=== PATIENT | female | born 1970 ===

== ENCOUNTER 2017-12-29 10:10 | Inpatient (IN) | payer BC ==
[2017-12-29] MEDS ORDERED: Sodium Chloride 0.9% 1,500 ML IV STA (10:54)
[2017-12-29 11:04] LABS: HCG,QUALITATIVE URINE NEGATIVE (NEGATIVE)
[2017-12-29 11:18] LABS: SQUAMOUS EPITHIAL 1 /hpf (0-5); URINE BILIRUBIN NEGATIVE (NEGATIVE); URINE BLOOD NEGATIVE (NEGATIVE); URINE CLARITY Hazy (Clear); URINE COLOR Amber (YELLOW); URINE GLUCOSE (UA) NORMAL (Normal); URINE PROTEIN 1+ mg/dL (NEGATIVE); URINE UROBILINOGEN NORMAL mg/dL (0.2-1.0)
[2017-12-29 11:19] LABS: URINE LEUKOCYTE ESTERASE 1+ Leu/uL (Negative)
[2017-12-29] MEDS ORDERED: Piperacill/Tazo 4.5gm in Dex 4.5 GM/100 ML BAG IVPB STA (11:19)
--- NOTE | 2017-12-29 11:26 | C.PDOC ---
History Of Present Illness 47 year old female with no past medical history presents to the emergency department with fever x 5 days. Reports body aches, general weakness, nausea, non-bloody, non-bilious vomiting x 3. Denies cough, dysuria, and diarrhea. Time Seen by Provider: 12/29/17 10:35 Chief Complaint (Nursing): Fever History Per: Patient History/Exam Limitations: no limitations Onset/Duration Of Symptoms: Days (5) Location Of Pain: Diffuse Myalgias Associated Symptoms: Nausea, Vomiting. denies: Cough, Diarrhea, Other (dysuria) Past Medical History Reviewed: Historical Data, Nursing Documentation, Vital Signs Vital Signs: Last Vital Signs Temp 98.5 F 12/29/17 12:22 Pulse 81 12/29/17 14:55 Resp 16 12/29/17 14:55 BP 108/56 L 12/29/17 14:55 Pulse Ox 93 L 12/29/17 14:57 - Medical History PMH: No Chronic Diseases Surgical History: No Surg Hx Family History: States: No Known Family Hx - Social History Hx Alcohol Use: No Hx Substance Use: No - Immunization History Hx Influenza Vaccination: No Hx Pneumococcal Vaccination: No Review Of Systems Except As Marked, All Systems Reviewed And Found Negative. Constitutional: Positive for: Weakness, Other (body aches) Respiratory: Negative for: Cough Gastrointestinal: Positive for: Nausea, Vomiting. Negative for: Diarrhea Genitourinary: Negative for: Dysuria Physical Exam - Physical Exam Additional Physical Exam Comments: Constitutional: No acute distress. Head: Normocephalic. Atraumatic. Eyes: PERRL. ENT: Moist mucous membranes. Neck: Supple. Cardiovascular: Tachycardic. Radial pulse 2+ bilaterally. Chest: No tenderness. Respiratory: Right basilar crackle. GI: Soft. Right upper quadrant tenderness. Guarding. "Patient did not realize abdominal pain until examination." Back: No CVA tenderness. Musculoskeletal: No tenderness or swelling of extremities. Skin: No rash. Neurologic: Alert, no focal deficit. ED Course And Treatment - Laboratory Results Result Diagrams: 12/29/17 11:33 12/29/17 11:33 O2 Sat by Pulse Oximetry: 93 (RA) Pulse Ox Interpretation: Abnormal - Other Rad Chest X-Ray X-Ray: Read By Radiologist Interpretation: FINDINGS: LUNGS: Patchy right lower long opacities. PLEURA: No significant pleural effusion identified, no pneumothorax apparent. CARDIOVASCULAR: Atherosclerotic aortic calcifications. Cardiomediastinal silhouette within normal limits. OSSEOUS STRUCTURES: No significant abnormalities. VISUALIZED UPPER ABDOMEN: Normal. OTHER FINDINGS: None. IMPRESSION: Patchy right lower lung opacities. - CT Scan/US US Abdomen Other Rad Studies (CT/US): Read By Radiologist, Radiology Report Reviewed CT/US Interpretation: FINDINGS: LIVER: Measures 14.4 cm. Normal echogenicity of the liver parenchyma. Tiny echogenic focus measuring up to 0.6 cm. No intrahepatic bile duct dilatation. GALLBLADDER: Unremarkable. No gallstones. COMMON BILE DUCT: Measures 4 mm. No stones. No dilatation. PANCREAS: Unremarkable as visualized. No mass. No ductal dilatation. RIGHT KIDNEY: Measures 10.6 x 4.2 x 4.5cm. Normal echogenicity. No calculus, mass, or hydronephrosis. LEFT KIDNEY: Measures 10.7 x 5.5 x 5.1cm. Normal echogenicity. No calculus, mass, or hydronephrosis. SPLEEN: Normal in size and contour. No mass. AORTA: No aneurysmal dilatation. IVC: Unremarkable. OTHER FINDINGS: None. IMPRESSION: Tiny echogenic focus in the right hepatic lobe measuring 6 mm, too small to characterize, but may represent a hemangioma. Medical Decision Making Medical Decision Making: Plan: VBG EKG CMP Magnesium Phosphorus CBC PTT Prothrombin Time CXR Zosyn 4.5gm/100ml NaCl IV Fluids Blood Culture Urine Culture Influenza A B Urine Urinalysis Dr. William accepts patient to medical service. Disposition Discussed With : Anny William Doctor Will See Patient In The: ED - Disposition Disposition: HOSPITALIZED Disposition Time: 15:00 Condition: FAIR Forms: [employer] ([place] Islander) - POA Core Measure Indicators: Pneumonia - Clinical Impression Clinical Impression: Pneumonia - Scribe Statement The provider has reviewed the documentation as recorded by the Scribe (Bhargav Acosta) Provider Attestation: All medical record entries made by the Scribe were at my direction and personally dictated by me. I have reviewed the chart and agree that the record accurately reflects my personal performance of the history, physical exam, medical decision making, and the department course for this patient. I have also personally directed, reviewed, and agree with the discharge instructions and disposition.
[2017-12-29 11:39] LABS: BASO % 0.1 % (0.0-2.0); EOS # 0.1 K/uL (0.0-0.7); EOS % 1.2 % (0.0-4.0); HEMOGLOBIN 11.7 g/dL (11.0-16.0); LYMPH # 0.5 K/uL (1.0-4.3); LYMPH % 4.2 % (20.0-40.0); MEAN CELL VOLUME 97.2 fL (81.0-99.0); MEAN CORPUSCULAR HEMOGLOBIN 32.9 pg (27.0-31.0); MEAN CORPUSCULAR HGB CONC 33.8 g/dL (33.0-37.0); MEAN PLATELET VOLUME 7.7 fL (7.2-11.7); MONO # 0.3 K/uL (0.0-0.8); MONO % 2.2 % (0.0-10.0); NEUT # 11.1 K/uL (1.8-7.0); NEUT % 92.3 % (50.0-75.0); PLATELET COUNT 226 K/uL (130-400); RBC 3.56 Mil/uL (3.80-5.20); RED CELL DISTRIBUTION WIDTH 13.2 % (11.5-14.5)
[2017-12-29 11:45] LABS: VENOUS BLOOD GAS BASE EXCESS -1.9 mmol/L (0.0-2.0); VENOUS BLOOD GAS PCO2 35 mmHg (40-60); VENOUS BLOOD GAS PO2 49 mm/Hg (30-55); VENOUS BLOOD PH 7.41 (7.32-7.43)
[2017-12-29 11:49] LABS: ALB/GLOB RATIO 1.1 (1.0-2.1); ALBUMIN 3.4 g/dL (3.5-5.0); ALT/SGPT 30 U/L (9-52); AST/SGOT 25 U/L (14-36); BLOOD UREA NITROGEN 16 mg/dL (7-17); CALCIUM 9.2 mg/dl (8.6-10.4); GFR NON-AFRICAN AMERICAN > 60
[2017-12-29 11:51] LABS: INR 1.6
--- NOTE | 2017-12-29 12:14 | RAD ---
Date of service: 12/29/2017 HISTORY: fever COMPARISON: No prior. FINDINGS: LUNGS: Patchy right lower long opacities. PLEURA: No significant pleural effusion identified, no pneumothorax apparent. CARDIOVASCULAR: Atherosclerotic aortic calcifications. Cardiomediastinal silhouette within normal limits. OSSEOUS STRUCTURES: No significant abnormalities. VISUALIZED UPPER ABDOMEN: Normal. OTHER FINDINGS: None. IMPRESSION: Patchy right lower lung opacities.
[2017-12-29 12:36] LABS: BANDS 19 % (0-2); EOSINOPHIL 1 % (0-4); LYMPHOCYTE 3 % (20-40); NEUTROPHIL 77 % (50-75); TOTAL CELLS COUNTED 100
[2017-12-29 12:37] LABS: LARGE PLATELETS PRESENT; PLATELET ESTIMATE NORMAL (NORMAL)
--- NOTE | 2017-12-29 14:53 | US ---
Date of service: 12/29/2017 HISTORY: RUQ pain COMPARISON: None. TECHNIQUE: Sonographic evaluation of the abdomen. FINDINGS: LIVER: Measures 14.4 cm. Normal echogenicity of the liver parenchyma. Tiny echogenic focus measuring up to 0.6 cm. No intrahepatic bile duct dilatation. GALLBLADDER: Unremarkable. No gallstones. COMMON BILE DUCT: Measures 4 mm. No stones. No dilatation. PANCREAS: Unremarkable as visualized. No mass. No ductal dilatation. RIGHT KIDNEY: Measures 10.6 x 4.2 x 4.5cm. Normal echogenicity. No calculus, mass, or hydronephrosis. LEFT KIDNEY: Measures 10.7 x 5.5 x 5.1cm. Normal echogenicity. No calculus, mass, or hydronephrosis. SPLEEN: Normal in size and contour. No mass. AORTA: No aneurysmal dilatation. IVC: Unremarkable. OTHER FINDINGS: None. IMPRESSION: Tiny echogenic focus in the right hepatic lobe measuring 6 mm, too small to characterize, but may represent a hemangioma.
[2017-12-29] MEDS ORDERED: Azithromycin 500 MG in Sodium Chloride 0.9% 250 ML IVPB STA (14:59)
[2017-12-29] MEDS ORDERED: Azithromycin 500mg/250ML NS 500 MG/250 ML BAG IVPB ONE (15:10)
--- NOTE | 2017-12-29 15:16 | CP.PCM.HP ---
<Omi López - Last Filed: 12/29/17 17:58> History of Present Illness - History of Present Illness History of Present Illness: Medicine H&P CC: fever and cough for the past 5 days HPI: This 47 year old female with PMHx of insomnia and seasonal allergies- presents c/o cough productive of white sputum and fever for the past 5 days. She states that she suffers from seasonal allergies and has been experiencing post nasal drip. She measured a Tmax of 100.3 despite taking Tylenol 1 tab TID for the past 3 days. She saw her PMD Dr. Gabriel in [facility] 2 days ago who diagnosed her with seasonal allergies and prescribed Cromolyn sodium spray, with minimal relief. She also states that she feels moderate pleuritic chest pain when she coughs. She denies overt chest pain, SOB, headaches, dizziness, LE swelling, overt abdominal pain, dysuria, or LE edema. She did vomit once this morning, which she attributes to difficulty expectorating and possibly swallowed some sputum. She denies any additional acute complaints. PMHx: insomnia PSHx: Lasix eye surgery b/l 2004 Meds: ambien 10mg PO HS, Latanoprost 0.005% eye drop b/l Allergies: NKDA, seasonal allergies FamHx: Dad 84yo, Mom 80yo - alive/well; denies FamHx. SocHx: denies tobacco, ETOH, or illicit drug use PMD: Dr. Gabriel in [facility] Review of Systems: -Gen: + fever, No chills, No headache, + lethargy, No weakness. -HEENT: No dizziness, No change in vision, No change in hearing, No sore throat , No dysphagia, + nasal congestion, No mucous. -Cardio: No chest pain, No palpitations, No lower extremity edema, No orthopnea. -Resp: +cough, No dyspnea, No hemoptysis, No wheezing, + pain on inspiration. -GI: No abdominal pain, +nausea/vomiting, No diarrhea/constipation, No hematochezia, No hematemesis. -: No dysuria, No urinary freq, No incontinence, No hematuria, No change in urinary stream. -MSK: No back pain, No muscle weakness, No radiating pain. -Skin: No itching, No rash, No lesions. -Neuro: No confusion, No numbness, No tingling, No focal weakness, No radicular pain, No syncope. -Psych: No anxiety, No depression, No H/I, No S/I, No hallucinations. Present on Admission - Present on Admission Any Indicators Present on Admission: No History of DVT/PE: No History of Uncontrolled Diabetes: No Past Patient History - Past Social History Smoking Status: Never Smoked - CARDIAC Hx Cardiac Disorders: No - PULMONARY Hx Respiratory Disorders: No - HEENT Hx Sinusitis: Yes - PSYCHIATRIC Hx Substance Use: No Meds Allergies/Adverse Reactions: Allergies Allergy/AdvReac Type Severity Reaction Status Date / Time No Known Allergies Allergy Verified 12/29/17 10:19 Physical Exam - Additional Findings Additional findings: - Constitutional Appears: Non-toxic, No Acute Distress - Head Exam Head Exam: ATRAUMATIC, NORMAL INSPECTION - Eye Exam Eye Exam: EOMI, Normal appearance - ENT Exam ENT Exam: Mucous Membranes Dry -b/l tonsilar exudates, mild; no cervical lymphadenopathy, non-TTP - Neck Exam Neck Exam: absent: Tenderness, Lymphadenopathy - Respiratory Exam Respiratory Exam: NORMAL BREATHING PATTERN, Crackles (R lower lobe). absent: Rales, Wheezes - Cardiovascular Exam Cardiovascular Exam: Regular Rate, +S1, +S2 - GI/Abdominal Exam GI & Abdominal Exam: Soft, Normal Bowel Sounds, Tenderness (mild, diffuse abdominal TTP - muscular). note: no suprapubic tenderness - Extremities Exam Extremities Exam: Full ROM, Normal Inspection. absent: Pedal Edema, Tenderness - Back Exam Back Exam: NORMAL INSPECTION. absent: CVA tenderness (L), CVA tenderness (R) - Neurological Exam Neurological Exam: Alert, Awake, Oriented x3 - Psychiatric Exam Psychiatric exam: Normal Affect, Normal Mood - Skin Skin Exam: Dry, Intact, Normal Color, Warm Results - Vital Signs Recent Vital Signs: Last Vital Signs Temp 98.5 F 12/29/17 12:22 Pulse 81 12/29/17 14:55 Resp 16 12/29/17 14:55 BP 108/56 L 12/29/17 14:55 Pulse Ox 93 L 12/29/17 15:00 - Labs Result Diagrams: 12/29/17 11:33 12/29/17 11:33 Labs: Laboratory Results - last 24 hr 12/29/17 12/29/17 12/29/17 10:53 11:33 11:33 WBC 12.0 H RBC 3.56 L Hgb 11.7 Hct 34.6 MCV 97.2 MCH 32.9 H MCHC 33.8 RDW 13.2 Plt Count 226 MPV 7.7 Neut % (Auto) 92.3 H Lymph % (Auto) 4.2 L [place] % (Auto) 2.2 Eos % (Auto) 1.2 Baso % (Auto) 0.1 Neut # (Auto) 11.1 H Lymph # (Auto) 0.5 L [place] # (Auto) 0.3 Eos # (Auto) 0.1 Baso # (Auto) 0.0 Neutrophils % (Manual) 77 H Band Neutrophils % 19 H* Lymphocytes % (Manual) 3 L Monocytes % (Manual) TEST NOT PERFORMED Eosinophils % (Manual) 1 Platelet Estimate Normal Large Platelets Present RBC Morphology Normal PT INR APTT pO2 VBG pH VBG pCO2 VBG HCO3 VBG Total CO2 VBG O2 Sat (Calc) VBG Base Excess VBG Potassium Glucose Lactate Sodium Potassium Chloride Carbon Dioxide Anion Gap BUN Creatinine Est GFR ( Amer) Est GFR (Non-Af Amer) Random Glucose Calcium Phosphorus Magnesium Total Bilirubin AST ALT Alkaline Phosphatase Total Protein Albumin Globulin Albumin/Globulin Ratio Venous Blood Potassium Urine Color Мария Urine Clarity Hazy Urine pH 5.0 Ur Specific [place] 1.024 Urine Protein 1+ H Urine Glucose (UA) Normal Urine Ketones 1+ H Urine Blood Negative Urine Nitrate Negative Urine Bilirubin Negative Urine Urobilinogen Normal Ur Leukocyte Esterase 1+ H Urine WBC (Auto) 17 H Urine RBC (Auto) 3 Ur Squamous Epith Cells 1 Urine HCG, Qual Negative Influenza Typ A,B (EIA) Negative for flu a/b 12/29/17 12/29/17 12/29/17 11:33 11:33 11:42 WBC RBC Hgb Hct MCV MCH MCHC RDW Plt Count MPV Neut % (Auto) Lymph % (Auto) [place] % (Auto) Eos % (Auto) Baso % (Auto) Neut # (Auto) Lymph # (Auto) [place] # (Auto) Eos # (Auto) Baso # (Auto) Neutrophils % (Manual) Band Neutrophils % Lymphocytes % (Manual) Monocytes % (Manual) Eosinophils % (Manual) Platelet Estimate Large Platelets RBC Morphology PT 17.0 H INR 1.6 APTT 31 pO2 49 VBG pH 7.41 VBG pCO2 35 L VBG HCO3 23.1 VBG Total CO2 23.3 VBG O2 Sat (Calc) 87.7 H VBG Base Excess -1.9 L VBG Potassium 3.5 L Glucose 84 Lactate 0.9 Sodium 136 135.0 Potassium 3.9 Chloride 101 103.0 Carbon Dioxide 24 Anion Gap 16 BUN 16 Creatinine 0.4 L Est GFR ( Amer) > 60 Est GFR (Non-Af Amer) > 60 Random Glucose 91 Calcium 9.2 Phosphorus 4.4 Magnesium 1.9 Total Bilirubin 0.5 AST 25 ALT 30 Alkaline Phosphatase 102 Total Protein 6.5 Albumin 3.4 L Globulin 3.1 Albumin/Globulin Ratio 1.1 Venous Blood Potassium 3.5 L Urine Color Urine Clarity Urine pH Ur Specific [place] Urine Protein Urine Glucose (UA) Urine Ketones Urine Blood Urine Nitrate Urine Bilirubin Urine Urobilinogen Ur Leukocyte Esterase Urine WBC (Auto) Urine RBC (Auto) Ur Squamous Epith Cells Urine HCG, Qual Influenza Typ A,B (EIA) Assessment & Plan - Assessment and Plan (Free Text) Assessment: Pneumonia r/o sepsis +SIRS: hypotension, WBC 12k with 19 bands CXR- Patchy right lower lung opacities. see full report. ED Course: Zosyn 4.5gm IVPB, Azithromycin 500mg IVPB, Toradol 30mg IVP, NS0.9 1500cc bolus. Influenza A B - negative Urine negative VBG lactate 0.9, f/u repeat ABG NS 0.9 at 100cc/hr Azithro 500mg IVPB qD Rocephin 1Gm IVPB q12H Florastor Tylenol 650mg PO Q6H PRN fever Duonebs q6H TIEN Mucinex Q12H TIEN CURB65 score of 1pt, indicating low risk of mortality for CAP calculate PORT/PSI score based on ABG when it results. f/u repeat lactate f/u CXR in am f/u ABG f/u Blood Culture f/u Urine Culture f/u throat culture / rapid strep f/u legionella, strep pneumo urine, m. pneumo Igm, Pleuritic Chest Pain Motrin 400mg PO Q6H PRN pain Mucinex Q12H TIEN Nausea/Vomit US abdomen- Tiny echogenic focus in the right hepatic lobe measuring 6 mm, too small to characterize, but may represent a hemangioma. see full report Zofran 4mg IVP qD PRN NS 0.9 at 100cc/hr Urinary Tract Infection asymptomatic on physical exam, denies dysuria UA: +1 ketone, +1 protein, +1 leuk est., WBC 17 Rocephin 1gm IV q12 for pneumonia will cover f/u urine culture Hypotension BP on admission 92/59-> improved to 108/56 with IVF Patient responded to 1.5L NS0.9 bolus Continue NS0.9 at 100cc/hr Insomnia continue ambien 5mg PO HS Prophylaxis -pepcid 20mg PO BID -SCDs -lovenox 40mg SC daily -heart healthy diet, soft Case discussed with Dr. William - Date & Time Date: 12/29/17 Time: 15:20 <Anny William V - Last Filed: 12/29/17 21:11> Results - Vital Signs Recent Vital Signs: Last Vital Signs Temp 98.2 F 12/29/17 20:57 Pulse 80 12/29/17 20:57 Resp 16 12/29/17 20:57 BP 121/65 12/29/17 20:57 Pulse Ox 95 12/29/17 20:57 - Labs Result Diagrams: 12/29/17 11:33 12/29/17 11:33 Labs: Laboratory Results - last 24 hr 12/29/17 12/29/17 12/29/17 10:53 11:33 11:33 WBC 12.0 H RBC 3.56 L Hgb 11.7 Hct 34.6 MCV 97.2 MCH 32.9 H MCHC 33.8 RDW 13.2 Plt Count 226 MPV 7.7 Neut % (Auto) 92.3 H Lymph % (Auto) 4.2 L [place] % (Auto) 2.2 Eos % (Auto) 1.2 Baso % (Auto) 0.1 Neut # (Auto) 11.1 H Lymph # (Auto) 0.5 L [place] # (Auto) 0.3 Eos # (Auto) 0.1 Baso # (Auto) 0.0 Neutrophils % (Manual) 77 H Band Neutrophils % 19 H* Lymphocytes % (Manual) 3 L Monocytes % (Manual) TEST NOT PERFORMED Eosinophils % (Manual) 1 Platelet Estimate Normal Large Platelets Present RBC Morphology Normal PT INR APTT Puncture Site pCO2 pO2 HCO3 ABG pH ABG Total CO2 ABG O2 Saturation ABG Base Excess [place] Test ABG Potassium VBG pH VBG pCO2 VBG HCO3 VBG Total CO2 VBG O2 Sat (Calc) VBG Base Excess VBG Potassium Glucose Lactate Sodium Potassium Chloride Carbon Dioxide Anion Gap BUN Creatinine Est GFR ( Amer) Est GFR (Non-Af Amer) Random Glucose Calcium Phosphorus Magnesium Total Bilirubin AST ALT Alkaline Phosphatase Total Protein Albumin Globulin Albumin/Globulin Ratio Arterial Blood Potassium Venous Blood Potassium Urine Color Мария Urine Clarity Hazy Urine pH 5.0 Ur Specific [place] 1.024 Urine Protein 1+ H Urine Glucose (UA) Normal Urine Ketones 1+ H Urine Blood Negative Urine Nitrate Negative Urine Bilirubin Negative Urine Urobilinogen Normal Ur Leukocyte Esterase 1+ H Urine WBC (Auto) 17 H Urine RBC (Auto) 3 Ur Squamous Epith Cells 1 Urine HCG, Qual Negative Influenza Typ A,B (EIA) Negative for flu a/b Grp A Beta Strep Ag 12/29/17 12/29/17 12/29/17 11:33 11:33 11:42 WBC RBC Hgb Hct MCV MCH MCHC RDW Plt Count MPV Neut % (Auto) Lymph % (Auto) [place] % (Auto) Eos % (Auto) Baso % (Auto) Neut # (Auto) Lymph # (Auto) [place] # (Auto) Eos # (Auto) Baso # (Auto) Neutrophils % (Manual) Band Neutrophils % Lymphocytes % (Manual) Monocytes % (Manual) Eosinophils % (Manual) Platelet Estimate Large Platelets RBC Morphology PT 17.0 H INR 1.6 APTT 31 Puncture Site pCO2 pO2 49 HCO3 ABG pH ABG Total CO2 ABG O2 Saturation ABG Base Excess Moses Test ABG Potassium VBG pH 7.41 VBG pCO2 35 L VBG HCO3 23.1 VBG Total CO2 23.3 VBG O2 Sat (Calc) 87.7 H VBG Base Excess -1.9 L VBG Potassium 3.5 L Glucose 84 Lactate 0.9 Sodium 136 135.0 Potassium 3.9 Chloride 101 103.0 Carbon Dioxide 24 Anion Gap 16 BUN 16 Creatinine 0.4 L Est GFR ( Amer) > 60 Est GFR (Non-Af Amer) > 60 Random Glucose 91 Calcium 9.2 Phosphorus 4.4 Magnesium 1.9 Total Bilirubin 0.5 AST 25 ALT 30 Alkaline Phosphatase 102 Total Protein 6.5 Albumin 3.4 L Globulin 3.1 Albumin/Globulin Ratio 1.1 Arterial Blood Potassium Venous Blood Potassium 3.5 L Urine Color Urine Clarity Urine pH Ur Specific [place] Urine Protein Urine Glucose (UA) Urine Ketones Urine Blood Urine Nitrate Urine Bilirubin Urine Urobilinogen Ur Leukocyte Esterase Urine WBC (Auto) Urine RBC (Auto) Ur Squamous Epith Cells Urine HCG, Qual Influenza Typ A,B (EIA) Grp A Beta Strep Ag 12/29/17 12/29/17 17:30 18:57 WBC RBC Hgb Hct MCV MCH MCHC RDW Plt Count MPV Neut % (Auto) Lymph % (Auto) [place] % (Auto) Eos % (Auto) Baso % (Auto) Neut # (Auto) Lymph # (Auto) [place] # (Auto) Eos # (Auto) Baso # (Auto) Neutrophils % (Manual) Band Neutrophils % Lymphocytes % (Manual) Monocytes % (Manual) Eosinophils % (Manual) Platelet Estimate Large Platelets RBC Morphology PT INR APTT Puncture Site Rr pCO2 31 L pO2 63 L HCO3 20.8 L ABG pH 7.39 ABG Total CO2 19.8 L ABG O2 Saturation 96.4 ABG Base Excess -5.1 L Moses Test Pos ABG Potassium 3.5 L VBG pH VBG pCO2 VBG HCO3 VBG Total CO2 VBG O2 Sat (Calc) VBG Base Excess VBG Potassium Glucose 83 Lactate 0.8 Sodium 136.0 Potassium Chloride 107.0 Carbon Dioxide Anion Gap BUN Creatinine Est GFR ( Amer) Est GFR (Non-Af Amer) Random Glucose Calcium Phosphorus Magnesium Total Bilirubin AST ALT Alkaline Phosphatase Total Protein Albumin Globulin Albumin/Globulin Ratio Arterial Blood Potassium 3.5 L Venous Blood Potassium Urine Color Urine Clarity Urine pH Ur Specific [place] Urine Protein Urine Glucose (UA) Urine Ketones Urine Blood Urine Nitrate Urine Bilirubin Urine Urobilinogen Ur Leukocyte Esterase Urine WBC (Auto) Urine RBC (Auto) Ur Squamous Epith Cells Urine HCG, Qual Influenza Typ A,B (EIA) Grp A Beta Strep Ag Negative Attending/Attestation - Attestation I have personally seen and examined this patient.: Yes I have fully participated in the care of the patient.: Yes I have reviewed all pertinent clinical information: Yes Notes (Text): patient seen, examined, and case discussed with remote medical coder. Patient with history of sinusitis, post nasal drip, had body aches and pains for the past 5 days, saw her PMD, given Singulair did not improve, attempted to go to urgent care but ultimately came to the hospital. Chest xray shows pneumonia. She is clinically dry on exam. She has received saline bolus and 2 doses of IV abx. Lactic acid. I have repeat ABG with shock, patient is hypoxic likely from pneumonia, we will repeat chest xray in the AM after hydration. Code sepsis was considered however lactate acid is normal on both check. 1) Pneumonia Sepsis Assessment/Plan * Treat as community acquired pneumonia * +SIRS: hypotension, WBC 12k with 19 bands * CXR- Patchy right lower lung opacities. see full report. * ED Course: Zosyn 4.5gm IVPB, Azithromycin 500mg IVPB, Toradol 30mg IVP, NS0.9 1500cc bolus. * Influenza A B - negative * Urine negative * VBG lactate 0.9, f/u repeat ABG which notes hypoxia and normal lactate acid. * NS 0.9 at 100cc/hr * Azithro 500mg IVPB qD * Rocephin 1Gm IVPB q12H * Florastor 250mg PO BID * Tylenol 650mg PO Q6H PRN fever * Duonebs q6H TIEN * Mucinex 600 Q12H TIEN * CURB65 score of 1pt, indicating low risk of mortality for CAP * PORT/PSI score-->55 points risk class 2: 0.6-0.9% mortality * f/u CXR in am * f/u Blood Culture * f/u Urine Culture * f/u throat culture / rapid strep * f/u legionella, strep pneumo urine, m. pneumo Igm * Influenza negative 2) Pleuritic Chest Pain Assessment/Plan * Motrin 400mg PO Q6H PRN pain * Mucinex 600mg Q12H TIEN 3) Nausea/Vomitting Assessment/Plan * likely induced from coughing * US abdomen- Tiny echogenic focus in the right hepatic lobe measuring 6 mm, too small to characterize, but may represent a hemangioma. see full report * Zofran 4mg IVP q6H PRN nausea * NS 0.9 at 100cc/hr 4) Asymtomatic Bacturia Abnormal UA Assessment/Plan * asymptomatic on physical exam, denies dysuria * UA: +1 ketone, +1 protein, +1 leuk est., WBC 17 * Rocephin 1gm IV q12 for pneumonia will cover * f/u urine culture 5) Hypotension Assessment/Plan * BP on admission 92/59-> improved to 108/56 with IVF * Patient responded to 1.5L NS0.9 bolus * Continue NS0.9 at 100cc/hr 6) Insomnia Assessment/Plan * continue ambien 5mg PO HS 7) Prophylaxis * pepcid 20mg PO BID * SCDs * lovenox 40mg SC daily * heart healthy diet, soft * PT/OT eval * oxygen 2L NC continous
[2017-12-29 17:34] LABS: ABG ALLEN TEST POS; ARTERIAL BLOOD GAS HCO3 20.8 mmol/L (21-28); ARTERIAL BLOOD GAS O2 SAT 96.4 % (95-98); ARTERIAL BLOOD GAS PCO2 31 mm/Hg (35-45); ARTERIAL BLOOD GAS PH 7.39 (7.35-7.45); ARTERIAL BLOOD GAS PO2 63 mm/Hg (80-100); ARTERIAL BLOOD GAS TCO2 19.8 mmol/L (22-28)
[2017-12-29] MEDS: Sodium Chloride 0.9% 1,000 ML IV SCH (17:55)
[2017-12-29] MEDS: guaiFENesin 600 mg ER Tab PO SCH (18:28)
[2017-12-29] MEDS: Saccharomyces Boulardi 250 mg Cap PO SCH (18:28)
[2017-12-29] MEDS: Albuterol-Ipratrop 3 mg / 0.5 (3 ml) UD INH SCH (20:27)
[2017-12-29] MEDS: Latanoprost 2.5 ml Opht Soln OU SCH (23:27)
[2017-12-30] MEDS: Albuterol-Ipratrop 3 mg / 0.5 (3 ml) UD INH SCH ×3 (02:29→13:35)
[2017-12-30] MEDS: Sodium Chloride 0.9% 1,000 ML IV SCH ×4 (03:29→22:38)
[2017-12-30 08:24] LABS: BASO % 0.1 % (0.0-2.0); EOS # 0.1 K/uL (0.0-0.7); EOS % 0.6 % (0.0-4.0); HEMOGLOBIN 10.1 g/dL (11.0-16.0); LYMPH # 0.8 K/uL (1.0-4.3); LYMPH % 6.6 % (20.0-40.0); MEAN CORPUSCULAR HEMOGLOBIN 32.7 pg (27.0-31.0); MEAN CORPUSCULAR HGB CONC 34.1 g/dL (33.0-37.0); MEAN PLATELET VOLUME 7.4 fL (7.2-11.7); MONO # 0.4 K/uL (0.0-0.8); MONO % 3.1 % (0.0-10.0); NEUT # 11.3 K/uL (1.8-7.0); NEUT % 89.6 % (50.0-75.0); PLATELET COUNT 229 K/uL (130-400); RBC 3.08 Mil/uL (3.80-5.20); RED CELL DISTRIBUTION WIDTH 13.3 % (11.5-14.5); WHITE BLOOD COUNT 12.6 K/uL (4.8-10.8)
[2017-12-30 08:35] LABS: ALBUMIN 2.6 g/dL (3.5-5.0); ALT/SGPT 33 U/L (9-52); AST/SGOT 18 U/L (14-36); BLOOD UREA NITROGEN 13 mg/dL (7-17); CALCIUM 7.9 mg/dl (8.6-10.4); GFR NON-AFRICAN AMERICAN > 60
[2017-12-30] MEDS: Enoxaparin 40 mg Syringe SC SCH (09:40)
[2017-12-30] MEDS: guaiFENesin 600 mg ER Tab PO SCH ×2 (09:40→17:21)
[2017-12-30] MEDS: Multiple Vitamins Tab PO SCH (09:40)
[2017-12-30] MEDS: Calcium-Vit D 500 mg-200 Units Tab UD PO SCH (09:40)
[2017-12-30] MEDS: Saccharomyces Boulardi 250 mg Cap PO SCH ×2 (09:40→17:21)
[2017-12-30] MEDS ORDERED: Enoxaparin 30 mg Syringe SC SCH (10:00)
--- NOTE | 2017-12-30 10:02 | RAD ---
Chest x-ray single frontal view History: Pneumonia. Comparison: 12/29/2017 Findings: Biapical pleural thickening with upper lobe granulomatous changes. Venous congestion. Consolidative changes at the right lung base and to a lesser extent left lung base. Tortuous ectatic aorta. Degenerative changes in the spine and shoulders. Impression: Biapical pleural thickening with upper lobe granulomatous changes. Venous congestion. Consolidative changes at the right lung base and to a lesser extent left lung base. Tortuous ectatic aorta.
--- NOTE | 2017-12-30 10:12 | CP.PCM.PN ---
Subjective - Date & Time of Evaluation Date of Evaluation: 12/30/17 Time of Evaluation: 09:45 - Subjective Subjective: Hospitalist Progress Note Patient was seen and examined at 9:45 AM 47 year old female with no significant past medical history was admitted for treatment of RLL Pneumonia. Upon FULL ROS: NO dysphagia/odynopahgia NO soreness in throat NO cough/SOB/Wheezing NO sinus/nasal congestion NO fever/chills NO muscle aches/pains NO joint pain NO chest pain/palpation NO abdominal pain NO n/v/d/c NO burning pain with urination NO WILLIAM NO lightheadedness/dizziness NO paresthesias NO new changes in vision NO new changes in hearing Exam: General: AAOX3, NAD HEENT: NCA, EOMI, PERRLA, NO cervical/supraclavicular/submandibular lymphadenopathy, NO pharyngeal erythema/exudate, Nasal Turbinates are nonerythematous/nonedematous, Oral Mucosa is moist Cardio: NS1 and NS2, NO M/R/G Resp: RLL inspiratory crackles GI: BSx4, Soft, NT, NO HSM, NO guarding/rebound tenderness Ext: Pulses are strong and equal, Capillary Refill is 2 seconds, NO edema Neuro: CN II through XII are grossly intact Assessments: 1). RLL Pneumonia: PSI does not indicate in-patient treatment. She is fever free. She stated that she has prescription drug coverage and will be able to pay for prescription for Levequin. Also explained that one of side effects of this drug can be tendonitis/tendon rupture and she will be careful lifting anything heavy, will not exercise, and be careful going up/down stairs. Explained that she will need to follow up with her PMD by the end of the week to clear her for work. Spoke with Elizabeth in the HR department of [employer] where patient works at patient's request to notify them that the patient will be off of work till beginning of next week. Note was faxed to the HR department at [phone] 2). Asymptomatic Bacturia: NO complaints of burning/pain with urination, NO urethral discharge, NO feeling of incomplete evacuation of bladder, NO increased frequency of urination, NO CVA tenderness on exam 3). Pleuritic Chest Pain: resolved 4). N/V: tolerated her breakfast this morning. Resolved 5). Hypotension: NO complaints of lightheadedness/dizziness, currently asymptomatic 6). Hx Insomnia: has enough of medication at home as per patient 7). Hx Lasik Surgery: has enough of eye drops at home as per patient Patient is stable for outpatient treatment of her RLL pneumonia The following instructions were explained to patient and a copy will need to be provided to her upon discharge: 1). Please make sure that you schedule follow up with your regular doctor by or Saturday of this week. You will need to be cleared by your regular doctor to return to work. 2). Through your regular doctor you will need a repeat chest x ray in roughly 6 to 8 weeks for follow up of your pneumonia on the right side of your lung. 3). Please have the following prescription filled at your pharmacy on your way home from the hospital and take as directed: Levoquin 750 mg, 1 tablet by mouth 1 time a day at 8 AM for 5 days starting on , Dispense #5, NO refills 4). Please make sure that you eat a citizen of [place] yogurt that contains probiotics everyday at 12 PM as part of your lunch for the next 35 days. This will help to keep the good bacteria in your colon. 5). Please be careful going up and down stairs, do not lift anything heavy, and do not exercise for the next 7 to 10 days as the antibiotic Levoquin can cause inflammation of your tendons and/or breakage of your tendon. 6). Please continue the rest of your home medications as prescribed by your regular doctor. 7). Should your symptoms worsen or come back, please return to the nearest emergency room. 8). Please stay well hydrated with water throughout the day. 9). You may use Tylenol 500 mg 1 tablet by mouth every 6 hours as needed for pain or fever. 10). Please take care and be well. Elie Lala D.O. Objective - Vital Signs/Intake and Output Vital Signs (last 24 hours): Temp Pulse Resp BP Pulse Ox 98.8 F 78 20 92/53 L 98 12/30/17 08:17 12/30/17 08:17 18 08:17 12/30/17 08:17 12/30/17 08:17 Intake and Output: 12/30/17 12/30/17 06:59 18:59 Intake Total 1040 Balance 1040 - Medications Medications: Current Medications Acetaminophen (Tylenol 325mg Tab) 650 mg PO Q6H PRN PRN Reason: Fever >100.4 F Last Admin: 12/30/17 06:17 Dose: 650 mg Albuterol/Ipratropium (Duoneb 3 Mg/0.5 Mg (3 Ml) Ud) 3 ml INH RQ6 [facility] Last Admin: 12/30/17 02:29 Dose: Not Given Ascorbic Acid (Vitamin C 500 Mg Tab) 500 mg PO BID [facility] Calcium/Vitamin D (Oyster Shell Calcium/Vitamin D 500 Mg-200 Iu) 1 tab PO DAILY [facility] Last Admin: 12/30/17 09:40 Dose: 1 tab Enoxaparin Sodium (Lovenox) 40 mg SC DAILY [facility] Last Admin: 12/30/17 09:40 Dose: 40 mg Famotidine (Pepcid) 20 mg PO BID [facility] Last Admin: 12/30/17 09:40 Dose: 20 mg Guaifenesin (Mucinex La) 600 mg PO BID [facility] Last Admin: 12/30/17 09:40 Dose: 600 mg Sodium Chloride (Sodium Chloride 0.9%) 1,000 mls @ 100 mls/hr IV .Q10H [facility] Last Admin: 12/30/17 03:29 Dose: 100 mls/hr Azithromycin 500 mg/ Sodium (Chloride) 250 mls @ 250 mls/hr IVPB Q24H [facility] PRN Reason: Protocol Ceftriaxone Sodium 1 gm/ (Sodium Chloride) 100 mls @ 100 mls/hr IVPB Q12H [facility] PRN Reason: Protocol Last Admin: 12/30/17 06:16 Dose: 100 mls/hr Ibuprofen (Motrin Tab) 400 mg PO Q6H PRN PRN Reason: Pain, moderate (4-7) Latanoprost (Xalatan Opht) 0 ml OU HS [facility] Last Admin: 12/29/17 23:27 Dose: 0.25 ml Multivitamins (Hexavitamin) 1 tab PO DAILY [facility] Last Admin: 12/30/17 09:40 Dose: 1 tab Ondansetron HCl (Zofran Inj) 4 mg IVP Q6H PRN PRN Reason: Nausea/Vomiting Saccharomyces Boulardii (Florastor) 250 mg PO BID [facility] Last Admin: 12/30/17 09:40 Dose: 250 mg Zolpidem Tartrate (Ambien) 5 mg PO HS [facility] Last Admin: 12/29/17 22:49 Dose: 5 mg - Labs Labs: 12/30/17 08:01 12/30/17 08:01 PT 17.0 SECONDS (9.7-12.2) H 12/29/17 11:33 INR 1.6 12/29/17 11:33 APTT 31 SECONDS (21-34) 12/29/17 11:33
[2017-12-30 10:25] LABS: TOTAL CELLS COUNTED 100
[2017-12-30 10:29] LABS: BANDS 17 % (0-2); EOSINOPHIL 2 % (0-4); LYMPHOCYTE 9 % (20-40); MONOCYTE 2 % (0-10); NEUTROPHIL 70 % (50-75); PLATELET ESTIMATE NORMAL (NORMAL)
[2017-12-30 10:31] LABS: BURR CELLS SLIGHT; OVALOCYTES SLIGHT; POIKILOCYTOSIS SLIGHT
[2017-12-30] MEDS ORDERED: Azithromycin 500 MG in Sodium Chloride 0.9% 250 ML IVPB SCH (15:00)
[2017-12-30 16:37] VITALS: O2SAT 95
--- NOTE | 2017-12-30 18:59 | CARD ---
APPROVED REPORT Date of service: 12/29/2017 EKG Measurement Heart [id number] <Conclusion> Normal sinus rhythm Septal infarct, age undetermined Abnormal ECG
[2017-12-30] MEDS: Latanoprost 2.5 ml Opht Soln OU SCH (22:43)
[2017-12-31 01:27] VITALS: BP 107/56; PULSE 87; RESP 20; TEMP 99.5
[2017-12-31] MEDS: Sodium Chloride 0.9% 1,000 ML IV SCH ×2 (01:40→08:30)
[2017-12-31] MEDS: Albuterol-Ipratrop 3 mg / 0.5 (3 ml) UD INH SCH ×2 (02:38→08:14)
--- NOTE | 2017-12-31 07:05 | CP.PCM.PN ---
<Josh Powers - Last Filed: 12/31/17 07:05> Subjective - Date & Time of Evaluation Date of Evaluation: 12/31/17 Time of Evaluation: 07:05 Objective - Vital Signs/Intake and Output Vital Signs (last 24 hours): Temp Pulse Resp BP Pulse Ox 99.5 F 87 20 107/56 L 95 12/30/17 23:15 12/30/17 23:15 12/30/17 23:15 12/30/17 23:15 12/30/17 23:15 Intake and Output: 12/31/17 12/31/17 06:59 18:59 Intake Total 800 Balance 800 - Medications Medications: Current Medications Acetaminophen (Tylenol 325mg Tab) 650 mg PO Q6H PRN PRN Reason: Fever >100.4 F Last Admin: 12/30/17 06:17 Dose: 650 mg Albuterol/Ipratropium (Duoneb 3 Mg/0.5 Mg (3 Ml) Ud) 3 ml INH RQ6 [facility] Last Admin: 12/31/17 02:38 Dose: Not Given Ascorbic Acid (Vitamin C 500 Mg Tab) 500 mg PO BID [facility] Last Admin: 12/30/17 17:21 Dose: 500 mg Calcium/Vitamin D (Oyster Shell Calcium/Vitamin D 500 Mg-200 Iu) 1 tab PO DAILY [facility] Last Admin: 12/30/17 09:40 Dose: 1 tab Enoxaparin Sodium (Lovenox) 40 mg SC DAILY [facility] Last Admin: 12/30/17 09:40 Dose: 40 mg Famotidine (Pepcid) 20 mg PO BID [facility] Last Admin: 12/30/17 17:21 Dose: 20 mg Guaifenesin (Mucinex La) 600 mg PO BID [facility] Last Admin: 12/30/17 17:21 Dose: 600 mg Sodium Chloride (Sodium Chloride 0.9%) 1,000 mls @ 100 mls/hr IV .Q10H [facility] Last Admin: 12/31/17 01:40 Dose: 100 mls/hr Azithromycin 500 mg/ Sodium (Chloride) 250 mls @ 250 mls/hr IVPB Q24H [facility] PRN Reason: Protocol Last Admin: 12/30/17 14:35 Dose: 250 mls/hr Ceftriaxone Sodium 1 gm/ (Sodium Chloride) 100 mls @ 100 mls/hr IVPB Q12H [facility] PRN Reason: Protocol Last Admin: 12/31/17 06:00 Dose: 100 mls/hr Ibuprofen (Motrin Tab) 400 mg PO Q6H PRN PRN Reason: Pain, moderate (4-7) Latanoprost (Xalatan Opht) 0 ml OU HS [facility] Last Admin: 12/30/17 22:43 Dose: 2.5 ml Multivitamins (Hexavitamin) 1 tab PO DAILY [facility] Last Admin: 12/30/17 09:40 Dose: 1 tab Ondansetron HCl (Zofran Inj) 4 mg IVP Q6H PRN PRN Reason: Nausea/Vomiting Saccharomyces Boulardii (Florastor) 250 mg PO BID [facility] Last Admin: 12/30/17 17:21 Dose: 250 mg Zolpidem Tartrate (Ambien) 5 mg PO HS [facility] Last Admin: 12/30/17 22:42 Dose: 5 mg - Labs Labs: 12/30/17 08:01 12/30/17 08:01 PT 17.0 SECONDS (9.7-12.2) H 12/29/17 11:33 INR 1.6 12/29/17 11:33 APTT 31 SECONDS (21-34) 12/29/17 11:33 <Elie Lala - Last Filed: 12/31/17 10:08> Subjective - Subjective Subjective: Hospitalist Progress Note Patient was seen and examined at 9:45 AM 12/31/17 552 A 47 year old female with no significant past medical history was admitted for treatment of RLL Pneumonia. She was going to be discharged on 10/29/17 however her WBC was still elevated and had elevated Bands. TODAY WBC are normalized and there are NO Bands. Urine Culture and BLood Culture are negative. NO fevers and vitals are stable. Upon FULL ROS: NO dysphagia/odynopahgia NO soreness in throat NO cough/SOB/Wheezing NO sinus/nasal congestion NO fever/chills NO muscle aches/pains NO joint pain NO chest pain/palpation NO abdominal pain NO n/v/d/c NO burning pain with urination NO WILLIAM NO lightheadedness/dizziness NO paresthesias NO new changes in vision NO new changes in hearing Exam: General: AAOX3, NAD HEENT: NCA, EOMI, PERRLA, NO cervical/supraclavicular/submandibular lymphadenopathy, NO pharyngeal erythema/exudate, Nasal Turbinates are nonerythematous/nonedematous, Oral Mucosa is moist Cardio: NS1 and NS2, NO M/R/G Resp: RLL inspiratory crackles GI: BSx4, Soft, NT, NO HSM, NO guarding/rebound tenderness Ext: Pulses are strong and equal, Capillary Refill is 2 seconds, NO edema Neuro: CN II through XII are grossly intact Assessments: 1). RLL Pneumonia: PSI does not indicate in-patient treatment. She is fever free. She stated that she has prescription drug coverage and will be able to pay for prescription for Levequin. Also explained that one of side effects of this drug can be tendonitis/tendon rupture and she will be careful lifting anything heavy, will not exercise, and be careful going up/down stairs. Explained that she will need to follow up with her PMD by the end of the week to clear her for work. Spoke with Elizabeth in the HR department of [employer] where patient works at patient's request to notify them that the patient will be off of work till beginning of next week. Note was faxed to the HR department at 2). Asymptomatic Bacturia: NO complaints of burning/pain with urination, NO urethral discharge, NO feeling of incomplete evacuation of bladder, NO increased frequency of urination, NO CVA tenderness on exam 3). Pleuritic Chest Pain: resolved 4). N/V: tolerated her breakfast this morning. Resolved 5). Hypotension: NO complaints of lightheadedness/dizziness, currently asymptomatic 6). Hx Insomnia: has enough of medication at home as per patient 7). Hx Lasik Surgery: has enough of eye drops at home as per patient Patient is stable for outpatient treatment of her RLL pneumonia The following instructions were explained to patient and a copy will need to be provided to her upon discharge: 1). Please make sure that you schedule follow up with your regular doctor by or Saturday of this week. You will need to be cleared by your regular doctor to return to work. 2). Through your regular doctor you will need a repeat chest x ray in roughly 6 to 8 weeks for follow up of your pneumonia on the right side of your lung. 3). Please have the following prescription filled at your pharmacy on your way home from the hospital and take as directed: Levoquin 750 mg, 1 tablet by mouth 1 time a day at 8 AM for 5 days starting on , Dispense #5, NO refills 4). You were provided with a prescription note to give to your employer and a copy was also faxed to the human resources department of your employer at fax number [phone] MARNI Isa: Please note the above patient was admitted to the hospital from 12/29/17 through 12/31/17. She will be ready to return to work next week as long as she is cleared by her Primary Care Physician. 5). Please make sure that you eat a [place] yogurt that contains probiotics everyday at 12 PM as part of your lunch for the next 35 days. This will help to keep the good bacteria in your colon. 6). Please be careful going up and down stairs, do not lift anything heavy, and do not exercise for the next 7 to 10 days as the antibiotic Levoquin can cause inflammation of your tendons and/or breakage of your tendon. 7). Please continue the rest of your home medications as prescribed by your regular doctor. 8). Should your symptoms worsen or come back, please return to the nearest emergency room. 9). Please stay well hydrated with water throughout the day. 10). You may use Tylenol 500 mg 1 tablet by mouth every 6 hours as needed for pain or fever. 11). Please take care and be well. Elie Lala D.O. Objective - Vital Signs/Intake and Output Vital Signs (last 24 hours): Temp Pulse Resp BP Pulse Ox 99.5 F 87 20 107/56 L 95 12/30/17 23:15 12/30/17 23:15 12/30/17 23:15 12/30/17 23:15 12/30/17 23:15 Intake and Output: 12/31/17 12/31/17 06:59 18:59 Intake Total 800 Balance 800 - Medications Medications: Current Medications Acetaminophen (Tylenol 325mg Tab) 650 mg PO Q6H PRN PRN Reason: Fever >100.4 F Last Admin: 12/30/17 06:17 Dose: 650 mg Albuterol/Ipratropium (Duoneb 3 Mg/0.5 Mg (3 Ml) Ud) 3 ml INH RQ6 [facility] Last Admin: 12/31/17 08:14 Dose: 3 ml Ascorbic Acid (Vitamin C 500 Mg Tab) 500 mg PO BID [facility] Last Admin: 12/30/17 17:21 Dose: 500 mg Calcium/Vitamin D (Oyster Shell Calcium/Vitamin D 500 Mg-200 Iu) 1 tab PO DAILY [facility] Last Admin: 12/30/17 09:40 Dose: 1 tab Enoxaparin Sodium (Lovenox) 40 mg SC DAILY [facility] Last Admin: 12/30/17 09:40 Dose: 40 mg Famotidine (Pepcid) 20 mg PO BID [facility] Last Admin: 12/30/17 17:21 Dose: 20 mg Guaifenesin (Mucinex La) 600 mg PO BID [facility] Last Admin: 12/30/17 17:21 Dose: 600 mg Sodium Chloride (Sodium Chloride 0.9%) 1,000 mls @ 100 mls/hr IV .Q10H [facility] Last Admin: 12/31/17 01:40 Dose: 100 mls/hr Azithromycin 500 mg/ Sodium (Chloride) 250 mls @ 250 mls/hr IVPB Q24H [facility] PRN Reason: Protocol Last Admin: 12/30/17 14:35 Dose: 250 mls/hr Ceftriaxone Sodium 1 gm/ (Sodium Chloride) 100 mls @ 100 mls/hr IVPB Q12H [facility] PRN Reason: Protocol Last Admin: 12/31/17 06:00 Dose: 100 mls/hr Ibuprofen (Motrin Tab) 400 mg PO Q6H PRN PRN Reason: Pain, moderate (4-7) Latanoprost (Xalatan Opht) 0 ml OU HS [facility] Last Admin: 12/30/17 22:43 Dose: 2.5 ml Multivitamins (Hexavitamin) 1 tab PO DAILY [facility] Last Admin: 12/30/17 09:40 Dose: 1 tab Ondansetron HCl (Zofran Inj) 4 mg IVP Q6H PRN PRN Reason: Nausea/Vomiting Potassium Chloride (Klor-Con 10) 10 meq PO ONCE ONE Stop: 01/01/18 09:30 Saccharomyces Boulardii (Florastor) 250 mg PO BID [facility] Last Admin: 12/30/17 17:21 Dose: 250 mg Zolpidem Tartrate (Ambien) 5 mg PO HS [facility] Last Admin: 12/30/17 22:42 Dose: 5 mg - Labs Labs: 12/31/17 07:25 12/31/17 07:25 PT 17.0 SECONDS (9.7-12.2) H 12/29/17 11:33 INR 1.6 12/29/17 11:33 APTT 31 SECONDS (21-34) 12/29/17 11:33
[2017-12-31 07:41] LABS: BASO % 0.3 % (0.0-2.0); EOS # 0.1 K/uL (0.0-0.7); EOS % 2.1 % (0.0-4.0); LYMPH # 1.1 K/uL (1.0-4.3); LYMPH % 20.4 % (20.0-40.0); MEAN CELL VOLUME 95.9 fL (81.0-99.0); MEAN CORPUSCULAR HEMOGLOBIN 32.9 pg (27.0-31.0); MEAN CORPUSCULAR HGB CONC 34.3 g/dL (33.0-37.0); MEAN PLATELET VOLUME 7.4 fL (7.2-11.7); MONO # 0.3 K/uL (0.0-0.8); MONO % 6.4 % (0.0-10.0); NEUT # 3.7 K/uL (1.8-7.0); NEUT % 70.8 % (50.0-75.0); NRBC % 0.1 % (0.0-2.0); RBC 3.05 Mil/uL (3.80-5.20); RED CELL DISTRIBUTION WIDTH 13.6 % (11.5-14.5)
[2017-12-31 07:42] LABS: WHITE BLOOD COUNT 5.2 K/uL (4.8-10.8)
[2017-12-31 07:47] LABS: ALBUMIN 2.8 g/dL (3.5-5.0); ALT/SGPT 41 U/L (9-52); AST/SGOT 41 U/L (14-36); BLOOD UREA NITROGEN 10 mg/dL (7-17); CALCIUM 8.1 mg/dl (8.6-10.4); GFR NON-AFRICAN AMERICAN > 60
[2017-12-31] MEDS: Multiple Vitamins Tab PO SCH (09:57)
[2017-12-31] MEDS: Enoxaparin 40 mg Syringe SC SCH (09:57)
[2017-12-31] MEDS: Calcium-Vit D 500 mg-200 Units Tab UD PO SCH (09:57)
[2017-12-31] MEDS: guaiFENesin 600 mg ER Tab PO SCH (09:57)
[2017-12-31] MEDS: Saccharomyces Boulardi 250 mg Cap PO SCH (09:57)
--- NOTE | 2017-12-31 17:48 | CP.PCM.DIS ---
Provider - Provider Date of Admission: 12/29/17 15:11 Attending physician: Omi Rasheed DO Time Spent in preparation of Discharge (in minutes): 45 Diagnosis - Discharge Diagnosis (1) Pneumonia Status: Acute Hospital Course - Lab Results Lab Results: Micro Results 12/29/17 12:14 Blood Blood Culture - Preliminary NO GROWTH AFTER 48 HOURS 12/29/17 12:14 Blood Blood Culture - Preliminary NO GROWTH AFTER 48 HOURS 12/29/17 11:33 Urine Urine Culture - Final 50-100,000 CFU/ML. MULTIPLE SPECIES. SUGGEST REPEAT SPECIMEN. 12/29/17 18:57 Throat Group A Strep Throat Culture - Final NO BETA STREP GROUP A ISOLATED. Most Recent Lab Values WBC 5.2 K/uL (4.8-10.8) D 12/31/17 07:25 RBC 3.05 Mil/uL (3.80-5.20) L 12/31/17 07:25 Hgb 10.0 g/dL (11.0-16.0) L 12/31/17 07:25 Hct 29.2 % (34.0-47.0) L 12/31/17 07:25 MCV 95.9 fL (81.0-99.0) 12/31/17 07:25 MCH 32.9 pg (27.0-31.0) H 12/31/17 07:25 MCHC 34.3 g/dL (33.0-37.0) 12/31/17 07:25 RDW 13.6 % (11.5-14.5) 12/31/17 07:25 Plt Count 249 K/uL (130-400) 12/31/17 07:25 MPV 7.4 fL (7.2-11.7) 12/31/17 07:25 Neut % (Auto) 70.8 % (50.0-75.0) 12/31/17 07:25 Lymph % (Auto) 20.4 % (20.0-40.0) 12/31/17 07:25 [place] % (Auto) 6.4 % (0.0-10.0) 12/31/17 07:25 Eos % (Auto) 2.1 % (0.0-4.0) 12/31/17 07:25 Baso % (Auto) 0.3 % (0.0-2.0) 12/31/17 07:25 Neut # (Auto) 3.7 K/uL (1.8-7.0) 12/31/17 07:25 Lymph # (Auto) 1.1 K/uL (1.0-4.3) 12/31/17 07:25 [place] # (Auto) 0.3 K/uL (0.0-0.8) 12/31/17 07:25 Eos # (Auto) 0.1 K/uL (0.0-0.7) 12/31/17 07:25 Baso # (Auto) 0.0 K/uL (0.0-0.2) 12/31/17 07:25 Neutrophils % (Manual) 70 % (50-75) 12/30/17 08:01 Band Neutrophils % 17 % (0-2) H* 12/30/17 08:01 Lymphocytes % (Manual) 9 % (20-40) L 12/30/17 08:01 Monocytes % (Manual) 2 % (0-10) 12/30/17 08:01 Eosinophils % (Manual) 2 % (0-4) 12/30/17 08:01 Platelet Estimate Normal (NORMAL) 12/30/17 08:01 Large Platelets Present 12/29/17 11:33 RBC Morphology Normal 12/29/17 11:33 Poikilocytosis (manual Slight 12/30/17 08:01 Ovalocytes Slight 12/30/17 08:01 [place] Cells Slight 12/30/17 08:01 PT 17.0 SECONDS (9.7-12.2) H 12/29/17 11:33 INR 1.6 12/29/17 11:33 APTT 31 SECONDS (21-34) 12/29/17 11:33 Puncture Site Rr 12/29/17 17:30 pCO2 31 mm/Hg (35-45) L 12/29/17 17:30 pO2 63 mm/Hg (80-100) L 12/29/17 17:30 HCO3 20.8 mmol/L (21-28) L 12/29/17 17:30 ABG pH 7.39 (7.35-7.45) 12/29/17 17:30 ABG Total CO2 19.8 mmol/L (22-28) L 12/29/17 17:30 ABG O2 Saturation 96.4 % (95-98) 12/29/17 17:30 ABG Base Excess -5.1 mmol/L (-2.0-3.0) L 12/29/17 17:30 Moses Test Pos 12/29/17 17:30 ABG Potassium 3.5 mmol/L (3.6-5.2) L 12/29/17 17:30 VBG pH 7.41 (7.32-7.43) 12/29/17 11:42 VBG pCO2 35 mmHg (40-60) L 12/29/17 11:42 VBG HCO3 23.1 mmol/L 12/29/17 11:42 VBG Total CO2 23.3 mmol/L (22-28) 12/29/17 11:42 VBG O2 Sat (Calc) 87.7 % (40-65) H 12/29/17 11:42 VBG Base Excess -1.9 mmol/L (0.0-2.0) L 12/29/17 11:42 VBG Potassium 3.5 mmol/L (3.6-5.2) L 12/29/17 11:42 Sodium 136.0 mmol/l (132-148) 12/29/17 17:30 Chloride 107.0 mmol/L (98-107) 12/29/17 17:30 Glucose 83 mg/dl (65-105) 12/29/17 17:30 Lactate 0.8 mmol/L (0.7-2.1) 12/29/17 17:30 Sodium 140 mmol/L (132-148) 12/31/17 07:25 Potassium 3.5 mmol/L (3.6-5.2) L 12/31/17 07:25 Chloride 106 mmol/L (98-107) 12/31/17 07:25 Carbon Dioxide 24 mmol/L (22-30) 12/31/17 07:25 Anion Gap 13 (10-20) 12/31/17 07:25 BUN 10 mg/dL (7-17) 12/31/17 07:25 Creatinine 0.4 mg/dL (0.7-1.2) L 12/31/17 07:25 Est GFR ( Amer) > 60 12/31/17 07:25 Est GFR (Non-Af Amer) > 60 12/31/17 07:25 Random Glucose 110 mg/dL (65-105) H 12/31/17 07:25 Calcium 8.1 mg/dl (8.6-10.4) L 12/31/17 07:25 Phosphorus 2.5 mg/dL (2.5-4.5) 12/31/17 07:25 Magnesium 1.9 mg/dL (1.6-2.3) 12/31/17 07:25 Total Bilirubin 0.1 mg/dL (0.2-1.3) L 12/31/17 07:25 AST 41 U/L (14-36) H D 12/31/17 07:25 ALT 41 U/L (9-52) 12/31/17 07:25 Alkaline Phosphatase 105 U/L (38-126) 12/31/17 07:25 Total Protein 5.5 g/dL (6.3-8.3) L 12/31/17 07:25 Albumin 2.8 g/dL (3.5-5.0) L 12/31/17 07:25 Globulin 2.7 gm/dL (2.2-3.9) 12/31/17 07:25 Albumin/Globulin Ratio 1.0 (1.0-2.1) 12/31/17 07:25 Arterial Blood Potassium 3.5 mmol/L (3.6-5.2) L 12/29/17 17:30 Venous Blood Potassium 3.5 mmol/L (3.6-5.2) L 12/29/17 11:42 Urine Color Мария (YELLOW) 12/29/17 10:53 Urine Clarity Hazy (Clear) 12/29/17 10:53 Urine pH 5.0 (5.0-8.0) 12/29/17 10:53 Ur Specific [place] 1.024 (1.003-1.030) 12/29/17 10:53 Urine Protein 1+ mg/dL (NEGATIVE) H 12/29/17 10:53 Urine Glucose (UA) Normal mg/dL (Normal) 12/29/17 10:53 Urine Ketones 1+ mg/dL (NEGATIVE) H 12/29/17 10:53 Urine Blood Negative (NEGATIVE) 12/29/17 10:53 Urine Nitrate Negative (NEGATIVE) 12/29/17 10:53 Urine Bilirubin Negative (NEGATIVE) 12/29/17 10:53 Urine Urobilinogen Normal mg/dL (0.2-1.0) 12/29/17 10:53 Ur Leukocyte Esterase 1+ Merissa/uL (Negative) H 12/29/17 10:53 Urine WBC (Auto) 17 /hpf (0-5) H 12/29/17 10:53 Urine RBC (Auto) 3 /hpf (0-3) 12/29/17 10:53 Ur Squamous Epith Cells 1 /hpf (0-5) 12/29/17 10:53 Urine HCG, Qual Negative (NEGATIVE) 12/29/17 10:53 Influenza Typ A,B (EIA) Negative for flu a/b (NEGATIVE) 12/29/17 11:33 Ur L.pneumophila Ag Negative (NEGATIVE) 12/29/17 20:40 Mycoplasma pneumon IgM Negative (NEGATIVE) 12/29/17 20:29 Grp A Beta Strep Ag Negative (NEGATIVE) 12/29/17 18:57 - Hospital Course Hospital Course: HPI: HPI: This 47 year old female with PMHx of insomnia and seasonal allergies- presents c/o cough productive of white sputum and fever for the past 5 days. She states that she suffers from seasonal allergies and has been experiencing post nasal drip. She measured a Tmax of 100.3 despite taking Tylenol 1 tab TID for the past 3 days. She saw her PMD Dr. Gabriel in [facility] 2 days ago who diagnosed her with seasonal allergies and prescribed Cromolyn sodium spray, with minimal relief. She also states that she feels moderate pleuritic chest pain when she coughs. She denies overt chest pain, SOB, headaches, dizziness, LE swelling, overt abdominal pain, dysuria, or LE edema. She did vomit once this morning, which she attributes to difficulty expectorating and possibly swallowed some sputum. She denies any additional acute complaints. PMHx: insomnia PSHx: Lasix eye surgery b/l 2004 Meds: ambien 10mg PO HS, Latanoprost 0.005% eye drop b/l Allergies: NKDA, seasonal allergies FamHx: Dad 84yo, Mom 80yo - alive/well; denies FamHx. SocHx: denies tobacco, ETOH, or illicit drug use PMD: Dr. Gabriel in [facility] Hospital Course: Patient was hospitalized for pneumonia shown on initial chest x-ray, presenting as cough with white sputum and subjective fever (though temp remained afebrile) . The patient also had a UA which showed leukocyte esterase and WBCs, though patient presented with no urinary symptoms. On admission, patient had a CURB65 score of 1pt, indicating low risk of mortality for CAP and PORT/PSI score of 55 points (risk class 2: 0.6-0.9% mortality). Pt was treated in the hospital for uncomplicated pneumonia and asymptomatic positive UA. Urine cultures, blood cultures, and GAS throat cultures all resulted and were negative. Patient was initially treated with Azithromycin and Zosyn in the ED. During hospital stay, patient was treated with Azithromycin and Rocephin. Patient was planned to be discharged home on 12/30 to be treated on PO antibiotics for her pneumonia, however final urine cultures were still pending. Final urine cultures were negative for acute urinary infection. Patient was discharged home on 12/31 with prescription for Levaquin, a work note allowing patient adequate time to recover, and plans to follow up with her PMD. Imaging: CXR (12/29/2017): CXR- Patchy right lower lung opacities. see full report. US abdomen (12/29/2017): Tiny echogenic focus in the right hepatic lobe measuring 6 mm, too small to characterize, but may represent a hemangioma. see full report] CXR (12/30/2017): Biapical thickening with upper lobe granulomatous changes. Venous congestion. Consolidative changes at the right lung base and to a lesser extent left lung base. Tortuous ectatic aorta. Plan: Patient is stable for outpatient treatment of her RLL pneumonia The following instructions were explained to patient and a copy will need to be provided to her upon discharge: 1). Please make sure that you schedule follow up with your regular doctor by or Saturday of this week. You will need to be cleared by your regular doctor to return to work. 2). Through your regular doctor you will need a repeat chest x ray in roughly 6 to 8 weeks for follow up of your pneumonia on the right side of your lung. 3). Please have the following prescription filled at your pharmacy on your way home from the hospital and take as directed: Levoquin 750 mg, 1 tablet by mouth 1 time a day at 8 AM for 5 days starting on 9 /19/18, Dispense #5, NO refills 4). You were provided with a prescription note to give to your employer and a copy was also faxed to the human resources department of your employer at fax number [phone] ATTENTION Isa: Please note the above patient was admitted to the hospital from 12/29/17 through 12/31/17. She will be ready to return to work next week as long as she is cleared by her Primary Care Physician. 5). Please make sure that you eat a burkinan yogurt that contains probiotics everyday at 12 PM as part of your lunch for the next 35 days. This will help to keep the good bacteria in your colon. 6). Please be careful going up and down stairs, do not lift anything heavy, and do not exercise for the next 7 to 10 days as the antibiotic Levoquin can cause inflammation of your tendons and/or breakage of your tendon. 7). Please continue the rest of your home medications as prescribed by your regular doctor. 8). Should your symptoms worsen or come back, please return to the nearest emergency room. 9). Please stay well hydrated with water throughout the day. 10). You may use Tylenol 500 mg 1 tablet by mouth every 6 hours as needed for pain or fever. 11). Please take care and be well. Elie Lala D.O. Discharge Exam - Eye Exam Eye Exam: EOMI, Normal appearance, PERRL Pupil Exam: PERRL - ENT Exam ENT Exam: Mucous Membranes Moist, Normal Oropharynx Additional comments: +cough productive of white mucous. - Respiratory Exam Respiratory Exam: Rales (+RLL Rales), NORMAL BREATHING PATTERN. absent: Rhonchi , Wheezes, Respiratory Distress - Cardiovascular Exam Cardiovascular Exam: REGULAR RHYTHM, RRR, +S1, +S2. absent: Gallop, Rubs - GI/Abdominal Exam GI & Abdominal Exam: Normal Bowel Sounds, Unremarkable. absent: Guarding, Rebound, Rigid - Extremities Exam Extremities exam: normal inspection - Neurological Exam Neurological exam: Alert, CN II-XII Intact, Normal Gait, Oriented x3 - Psychiatric Exam Psychiatric exam: Normal Affect, Normal Mood - Skin Skin Exam: Dry, Intact, Normal Color, Warm Discharge Plan - Discharge Medications Prescriptions: Levofloxacin [Levaquin] 750 mg PO DAILY #5 tablet - Follow Up Plan Condition: FAIR Disposition: HOME/ ROUTINE Instructions: Pneumonia in Adults, Levofloxacin (Systemic), Probiotics Additional Instructions: The following instructions were explained to patient and a copy will need to be provided to her upon discharge: 1). Please make sure that you schedule follow up with your regular doctor by or Saturday of this week. You will need to be cleared by your regular doctor to return to work. 2). Through your regular doctor you will need a repeat chest x ray in roughly 6 to 8 weeks for follow up of your pneumonia on the right side of your lung. 3). Please have the following prescription filled at your pharmacy on your way home from the hospital and take as directed: Levoquin 750 mg, 1 tablet by mouth 1 time a day at 8 AM for 5 days starting on , Dispense #5, NO refills 4). Please make sure that you eat a burkinan yogurt that contains probiotics everyday at 12 PM as part of your lunch for the next 35 days. This will help to keep the good bacteria in your colon. 5). Please be careful going up and down stairs, do not lift anything heavy, and do not exercise for the next 7 to 10 days as the antibiotic Levoquin can cause inflammation of your tendons and/or breakage of your tendon. 6). Please continue the rest of your home medications as prescribed by your regular doctor. 7). Should your symptoms worsen or come back, please return to the nearest emergency room. 8). Please stay well hydrated with water throughout the day. 9). You may use Tylenol 500 mg 1 tablet by mouth every 6 hours as needed for pain or fever. 10). Please take care and be well. Las siguientes instrucciones fueron explicadas al paciente y se le deber proporcionar franco copia al momento del kip: 1). Asegrese de programar un seguimiento con brar mdico habitual antes del jueves o viernes de esta semana. Deber recibir autorizacin de brar mdico habitual para regresar al trabajo. 2). A travs de brar mdico habitual, necesitar repetir franco radiografa de trax en aproximadamente 6 a 8 semanas para el seguimiento de brar neumona en el lado derecho de brar pulmn. 3). Lleve la siguiente receta mdica a brar farmacia en el cate a casa desde el hospital y tome las indicaciones: Levoquin 750 mg, 1 tableta por va oral 1 vez al da a las 8 a.m. rashad 5 d as a partir del 12/31/17, dispensacin n. 5, sin reposicin 4). Por favor, asegrese de comer un yogur eduardo que contenga probiticos todos los gan a las 12 PM khris parte de brar almuerzo rashad los prximos 35 d as. [place] ayudar a mantener las buenas bacterias en brar colon. 5). Tenga cuidado al subir y bajar escaleras, no levante objetos pesados y no preet ejercicios rashad los prximos 7 a 10 gan ya que el antibitico Levoquin puede causar inflamacin de los tendones y / o rotura del tendn. 6). Contine con el malena de los medicamentos de brar hogar segn lo recetado por brar mdico habitual. 7). Si noelle sntomas empeoran o reaparecen, regrese a la sonido de emergencias ms cercana. 8). Por favor mantente maricruz hidratado con agua rashad todo el da. 9). Puede usar Tylenol 500 mg 1 tableta por va oral cada 6 horas, segn sea necesario para el dolor o la fiebre. 10). Por favor cudate y estate maricruz.
[2018-01-01] MEDS ORDERED: Potassium Chloride 10 mEq ER Tab PO ONE (09:29)
== END 2017-12-31 12:30 | disposition home or self-care (01) | DRG 195 ==
LOC: C.ER 10:10 → C.9E 15:11 → C.5S 23:40
PROVIDERS: ADMIT Hospitalist; ATTEND Hospitalist
DX: J18.9 Pneumonia, unspecified organism (principal); J30.2 Other seasonal allergic rhinitis; I95.9 Hypotension, unspecified; R07.81 Pleurodynia; G47.00 Insomnia, unspecified; I77.819 Aortic ectasia, unspecified site